=== PATIENT | female | born 1995 | race African-American/Black ===

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

== ENCOUNTER 2017-03-22 11:47 | Emergency (ER) | payer SELFPAY ==
[~2017-03-22] VITALS: Ht 162.6 cm; Wt 60.0 kg
[~2017-03-22 11:47] MED LIST changes: +DEPO150I IM; -VENTAER INH
[2017-03-22 11:48] VITALS: BP 126/62; PULSE 65; RESP 16; TEMP 98.7; O2SAT 100
== END 2017-03-22 15:28 | disposition left against medical advice (07) ==
LOC: NED 11:47
DX: R21 Rash and other nonspecific skin eruption (principal); Z53.21 Procedure and treatment not carried out due to patient leaving prior to being seen by health care provider
CPT/HCPCS: 99281